=== PATIENT | female | born 1930 ===

== ENCOUNTER 2017-07-15 06:56 | Day surgery (SDC) | payer OTHER ==
[2017-07-02 15:10] VITALS: BMI 25.7
[2017-07-15] MEDS ORDERED: Heparin 0 ML IV ONE (08:35)
[2017-07-15] MEDS ORDERED: Iodixanol 320 MG/ML 100 ML BOTTLE IV ONE ×3 (08:35→12:32)
[2017-07-15 08:49] LABS: HEMATOCRIT 28.2 % (34.0-47.0); MEAN CELL VOLUME 82.1 fL (81.0-99.0); MEAN CORPUSCULAR HEMOGLOBIN 27.2 pg (27.0-31.0); MEAN CORPUSCULAR HGB CONC 33.1 g/dL (33.0-37.0); MEAN PLATELET VOLUME 7.2 fL (7.2-11.7); RED CELL DISTRIBUTION WIDTH 19.1 % (11.5-14.5); WHITE BLOOD COUNT 10.5 K/uL (4.8-10.8)
[2017-07-15 09:20] LABS: CALCIUM 9.2 mg/dl (8.6-10.4); POTASSIUM 4.4 mmol/L (3.6-5.2)
[2017-07-15] MEDS ORDERED: DiphenhydrAMINE 50 mg/ml Inj ONE (11:38)
[2017-07-15] MEDS ORDERED: Midazolam 2 MG/2 ML VIAL ONE (11:47)
[2017-07-15 12:27] LABS: DRAW SITE LINE; VENOUS BLOOD GAS BASE EXCESS -7.1 mmol/L (0.0-2.0); VENOUS BLOOD GAS PCO2 34 mmHg (40-60); VENOUS BLOOD PH 7.33 (7.32-7.43)
[2017-07-15 12:31] LABS: DRAW SITE LINE; VENOUS BLOOD GAS PCO2 40 mmHg (40-60); VENOUS BLOOD PH 7.27 (7.32-7.43)
[2017-07-15 12:35] LABS: ARTERIAL BLOOD HGB O2 SAT 96.9 % (95.0-98.0); DRAW SITE LINE; HHB -0.2 % (0.0-5.0); METHEMOGLOBIN 1.2 % (0.0-3.0)
--- NOTE | 2017-07-16 00:13 | CARDCATH ---
PROCEDURE DATE: 07/15/2017 INDICATION: Ms. Stefania Garcia is an 86-year-old female, referred to me for evaluation of aortic stenosis. She underwent a complete heart catheterization, for further evaluation of her aortic stenosis and symptoms of dyspnea on exertion. PROCEDURES PERFORMED: Complete heart catheterization with selective right and left coronary angiogram via right femoral approach. 6-Canadian right femoral arterial access and 7-Canadian right femoral venous access, Mynx closure device for hemostasis. TECHNIQUE OF PROCEDURE: After obtaining informed consent, the patient was brought to the cardiac cath suite in post-absorptive, non-sedated state. The patient was prepped and draped in the usual sterile fashion. A 2% lidocaine was used for infiltration of anesthesia. Using modified Seldinger technique, a 6-Canadian sheath was introduced into the right femoral artery and a 7-Canadian sheath was introduced into the right femoral vein. Subsequently, under fluoroscopic guidance, with the balloon inflated, catheter was freely advanced with IVC into the RA, RV, PA and wedge position. Hemodynamics and saturations were obtained. Pulmonary capillary wedge pressure 8/4/3, PA pressure 31/8/16, RV 30/-3/1, RA 2/0/-2, aortic systolic pressure is 128, LV systolic pressure 177, PA saturation 78.3, oxygen saturation 100%, RA saturation 89.5 with a cardiac output using the peak equation was calculated to be 6.96 and cardiac index was 4.02 L per minute per square meter area. Using the equation, aortic valve area was calculated to be 0.92 cm2 with a mean transaortic area of 41 mmHg. CORONARY ANATOMY: Subsequently, left heart catheterization was performed with selective left and right coronary angiograms. JL4 and JR4 diagnostic catheters were used to engage the left and right coronary system. Angiograms were obtained in different orthogonal views. Subsequently, was used to cross the aortic valve and simultaneous LVO gradients were obtained using Bulpitt pigtail catheter. ANGIOGRAPHIC FINDINGS: Coronary anatomy, left main large size vessel bifurcates into LAD and left circumflex coronary artery. LAD is a large-sized vessel gives off two medium-sized diagonal branches with mild luminal irregularities of circumflex run in the AV groove. There is a large obtuse marginal branch with mild luminal irregularities. RCA medium-sized vessel and ostial 55% stenosis with some damping of pressure noted on engagement of the RCA. IMPRESSION: Severe aortic stenosis and nonobstructive coronary artery disease, normal filling pressures, normal pulmonary pressure. RECOMMENDATIONS: The patient needs to be evaluated for aortic value replacement versus transcutaneous aortic valve replacement. Miguel Angel Alfred MD
== END 2017-07-15 15:31 | disposition home or self-care (01) ==
LOC: C.CATHLAB 06:56
PROVIDERS: ATTEND Internal Medicine Interventional Cardiology
DX: Z45.2 Encounter for adjustment and management of vascular access device (principal); I35.0 Nonrheumatic aortic (valve) stenosis; I25.10 Atherosclerotic heart disease of native coronary artery without angina pectoris
CPT/HCPCS: 36415; 80048; 82803; 85027; J1200; J1644; J2250; J3010; Q9967